=== PATIENT | male | born 1990 | race African-American/Black ===

== ENCOUNTER 2017-12-15 21:47 | Emergency (ER) | payer OTHER ==
[~2017-12-15] VITALS: Ht 170.2 cm; Wt 63.5 kg
[2017-12-15] MEDS ORDERED: ACCUNEB SO1.25 MG/1 INH (22:00)
[2017-12-15] MEDS ORDERED: MIRALAX17 GM PO (22:17)
[2017-12-15] MEDS ORDERED: RECTICARE30 GM TOP (22:17)
[2017-12-15 22:23] LABS: URINE BLOOD NEGATIVE (Negative); URINE CLARITY CLEAR; URINE COLOR YELLOW; URINE GLUCOSE-RANDOM* NEGATIVE (Negative); URINE KETONES TRACE (Negative); URINE LEUKOCYTES NEGATIVE (Negative); URINE NITRITE NEGATIVE (Negative); URINE PROTEIN (DIPSTICK) NEGATIVE (Negative); URINE SPECIFIC GRAVITY >= 1.030 (1.005-1.035); URINE UROBILINOGEN 0.2 E.U./dl (0.2-1.0)
[2017-12-15 22:25] LABS: ICTOTEST (BILI CONFIRMATORY) Negative (Negative); URINE BILIRUBIN NEGATIVE (Negative)
== END 2017-12-15 23:10 | disposition home or self-care (01) ==
LOC: ER 21:47
PROVIDERS: Physician Assistant
DX: R10.9 Unspecified abdominal pain (principal); K64.9 Unspecified hemorrhoids; K59.00 Constipation, unspecified; F17.210 Nicotine dependence, cigarettes, uncomplicated